=== PATIENT | female | born 1980 | race Caucasian/White ===

== ENCOUNTER 2023-02-17 23:30 | Emergency (ER) | payer SELFPAY ==
[~2023-02-17] VITALS: Ht 152.4 cm; Wt 50.0 kg
[2023-02-17 23:58] VITALS: BP 134/86; PULSE 82; RESP 16; TEMP 98.3; O2SAT 99
== END 2023-02-18 05:29 | disposition left against medical advice (07) ==
LOC: ER 23:30
DX: Z53.21 Procedure and treatment not carried out due to patient leaving prior to being seen by health care provider (principal)
CPT/HCPCS: 82962; 99281